=== PATIENT | female | born 1935 | race Caucasian/White ===

== ENCOUNTER 2020-09-09 02:07 | Inpatient (IN) | payer MEDICARE, OTHER ==
[~2020-09-09] VITALS: Ht 172.7 cm; Wt 57.5 kg
[2020-09-09 03:40] VITALS: BP 104/60
[2020-09-09] MEDS ORDERED: GUAIFENESIN/DM 200-20MG, 10ML UDC PO PRN (04:30)
[2020-09-09] MEDS ORDERED: ONDANSETRON 2MG/ML, 2ML IVPush PRN (04:30)
[2020-09-09] MEDS ORDERED: SODIUM CHLORIDE 0.9% 1,000 ML IV SCH (04:30)
[2020-09-09] MEDS ORDERED: METHOCARBAMOL 500 MG TABLET PO PRN (04:30)
[2020-09-09] MEDS ORDERED: OXYcodone IR 5MG TABLET PO PRN (04:30)
[2020-09-09] MEDS ORDERED: ACETAMINOPHEN 325 MG TABLET PO PRN (04:30)
[2020-09-09] MEDS ORDERED: ENALAPRILAT 1.25 MG/ML, 2ML IVPush PRN (04:30)
[2020-09-09] MEDS ORDERED: TEMAZEPAM 15 MG CAPSULE PO PRN (04:30)
[2020-09-09] MEDS ORDERED: DOCUSATE 100 MG CAPSULE PO PRN (04:30)
[2020-09-09 05:29] LABS: BASOPHILS % (AUTO) 0 % (0-1); EOSINOPHILS % (AUTO) 0 % (1-7); LYMPHOCYTES % (AUTO) 5 % (22-44); MEAN CORPUSCULAR HEMOGLOBIN 31.4 pg (27.0-34.8); MEAN CORPUSCULAR HGB CONC 33.9 g/dL (32.4-35.8); MEAN PLATELET VOLUME 7.7 fL (7.4-10.4); MONOCYTES % (AUTO) 7 % (2-9); NEUTROPHILS % (AUTO) 88 % (42-75); PLATELET COUNT 299 x10^3/uL (130-400); RED BLOOD COUNT 3.75 x10^6/uL (3.82-5.3); RED CELL DISTRIBUTION WIDTH 14.2 % (9.6-15.2)
[2020-09-09] MEDS ORDERED: PLEASE ENTER ALLERGIES MC SCH (05:30)
[2020-09-09 05:33] LABS: ANION GAP 7 mmol/L (5-15); CALCIUM 8.5 mg/dL (8.5-10.1); CHLORIDE 107 mmol/L (98-107)
[2020-09-09] MEDS: ENOXAPARIN 40 MG/0.4 ML SQ SCH (06:01)
[2020-09-09] MEDS ORDERED: CLOP75TA52 PO (07:23)
[2020-09-09] MEDS: CEFTRIAXONE 2 GM in DEXTROSE 5% 50 ML IVPB SCH (07:53)
[2020-09-09 07:56] VITALS: BP 118/62
[2020-09-09 11:51] LABS: MICROSCOPIC AUTO
[2020-09-09] MEDS: THIAMINE 100 MG in SODIUM CHLORIDE 0.9% 50 ML IV SCH (13:20)
[2020-09-09] MEDS: INSULIN LISPRO 100 UNITS/ML, PEN SQ-INSULIN SCH ×3 (13:21→20:43)
[2020-09-09 14:59] VITALS: BP 104/60
[2020-09-09 19:32] VITALS: BP 113/67
[2020-09-10 01:18] VITALS: BP 121/75
[2020-09-10] MEDS ORDERED: SODIUM CHLORIDE 0.9% 1,000 ML IV SCH (04:30)
[2020-09-10 04:43] LABS: BASOPHILS % (AUTO) 1 % (0-1); EOSINOPHILS % (AUTO) 0 % (1-7); LYMPHOCYTES % (AUTO) 9 % (22-44); MEAN CORPUSCULAR HEMOGLOBIN 31.7 pg (27.0-34.8); MEAN CORPUSCULAR HGB CONC 33.9 g/dL (32.4-35.8); MEAN PLATELET VOLUME 7.6 fL (7.4-10.4); MONOCYTES % (AUTO) 7 % (2-9); NEUTROPHILS % (AUTO) 83 % (42-75); PLATELET COUNT 279 x10^3/uL (130-400); RED BLOOD COUNT 3.83 x10^6/uL (3.82-5.3); RED CELL DISTRIBUTION WIDTH 13.7 % (9.6-15.2)
[2020-09-10 04:54] LABS: ANION GAP 13 mmol/L (5-15); CALCIUM 8.4 mg/dL (8.5-10.1); CHLORIDE 109 mmol/L (98-107)
[2020-09-10 05:06] LABS: ALANINE AMINOTRANSFERASE 18 U/L (12-78); ALKALINE PHOSPHATASE 65 U/L (45-117); BILIRUBIN,TOTAL 0.4 mg/dL (0.2-1.0); CREATINE KINASE, TOTAL 178 U/L (26-192); CREATININE 0.29 mg/dL (0.55-1.02); TOTAL PROTEIN 5.5 g/dL (6.4-8.2)
[2020-09-10] MEDS: ENOXAPARIN 40 MG/0.4 ML SQ SCH (05:27)
[2020-09-10] MEDS: INSULIN LISPRO 100 UNITS/ML, PEN SQ-INSULIN SCH ×4 (08:00→19:47)
[2020-09-10] MEDS: CEFTRIAXONE 2 GM in DEXTROSE 5% 50 ML IVPB SCH (08:00)
[2020-09-10 09:04] VITALS: BP 115/66
[2020-09-10] MEDS: THIAMINE 100 MG in SODIUM CHLORIDE 0.9% 50 ML IV SCH (11:48)
[2020-09-10 12:47] LABS: ANION GAP 16 mmol/L (5-15); CALCIUM 8.9 mg/dL (8.5-10.1); CHLORIDE 107 mmol/L (98-107); CREATININE 0.45 mg/dL (0.55-1.02)
[2020-09-10] MEDS ORDERED: INSULIN HUMULIN 70/30, 3ML PEN SQ-INSULIN ONE (13:30)
[2020-09-10 13:42] LABS: TROPONIN I < 0.015 ng/mL (0.000-0.045)
[2020-09-10 14:45] VITALS: BP 109/60
[2020-09-10 16:23] LABS: ANION GAP 11 mmol/L (5-15); CALCIUM 8.6 mg/dL (8.5-10.1); CHLORIDE 107 mmol/L (98-107)
[2020-09-10 16:24] LABS: CREATININE 0.45 mg/dL (0.55-1.02)
[2020-09-10] MEDS: CARVEDILOL 3.125 MG TABLET PO SCH (16:59)
[2020-09-10 21:10] VITALS: BP 114/59
[2020-09-11 00:01] VITALS: BP 127/70
[2020-09-11 04:59] VITALS: BP 110/62
[2020-09-11] MEDS: ENOXAPARIN 40 MG/0.4 ML SQ SCH (05:01)
[2020-09-11] MEDS: CARVEDILOL 3.125 MG TABLET PO SCH ×2 (05:01→17:45)
[2020-09-11 06:57] VITALS: BP 116/64
[2020-09-11] MEDS: CEFTRIAXONE 2 GM in DEXTROSE 5% 50 ML IVPB SCH (07:38)
[2020-09-11] MEDS: ASPIRIN 81 MG TABLET CHEW PO SCH (07:38)
[2020-09-11] MEDS: INSULIN LISPRO 100 UNITS/ML, PEN SQ-INSULIN SCH ×4 (07:51→20:23)
[2020-09-11 09:34] LABS: ANION GAP 9 mmol/L (5-15); CALCIUM 8.7 mg/dL (8.5-10.1); CHLORIDE 110 mmol/L (98-107); CREATININE 0.44 mg/dL (0.55-1.02)
[2020-09-11 09:38] LABS: BASOPHILS % (AUTO) 0 % (0-1); EOSINOPHILS % (AUTO) 0 % (1-7); LYMPHOCYTES % (AUTO) 6 % (22-44); MEAN CORPUSCULAR HEMOGLOBIN 31.7 pg (27.0-34.8); MEAN PLATELET VOLUME 7.9 fL (7.4-10.4); MONOCYTES % (AUTO) 6 % (2-9); NEUTROPHILS % (AUTO) 87 % (42-75); PLATELET COUNT 298 x10^3/uL (130-400); RED BLOOD COUNT 3.88 x10^6/uL (3.82-5.3); RED CELL DISTRIBUTION WIDTH 13.8 % (9.6-15.2)
[2020-09-11] MEDS: THIAMINE 100 MG in SODIUM CHLORIDE 0.9% 50 ML IV SCH (11:24)
[2020-09-11] MEDS: INSULIN GLARGINE 100 UNITS/ML, PEN SQ-INSULIN SCH (11:51)
[2020-09-11 12:26] VITALS: BP 109/60
[2020-09-11] MEDS ORDERED: GADOTERATE 5 MMOL/10ML SYR ONE (17:09)
[2020-09-11 19:55] VITALS: BP 124/67
[2020-09-12 00:07] VITALS: BP 115/66
[2020-09-12 05:36] VITALS: BP 115/61
[2020-09-12] MEDS: CARVEDILOL 3.125 MG TABLET PO SCH ×2 (05:40→18:46)
[2020-09-12 07:33] VITALS: BP 114/56
[2020-09-12] MEDS: CEFTRIAXONE 2 GM in DEXTROSE 5% 50 ML IVPB SCH (08:00)
[2020-09-12] MEDS: ASPIRIN 81 MG TABLET CHEW PO SCH (08:13)
[2020-09-12] MEDS: INSULIN LISPRO 100 UNITS/ML, PEN SQ-INSULIN SCH ×4 (08:25→19:58)
[2020-09-12] MEDS: INSULIN GLARGINE 100 UNITS/ML, PEN SQ-INSULIN SCH (08:25)
[2020-09-12] MEDS: THIAMINE 100 MG in SODIUM CHLORIDE 0.9% 50 ML IV SCH (12:06)
[2020-09-12 12:46] VITALS: BP 123/57
[2020-09-12 17:34] VITALS: BP 113/58
[2020-09-12 19:40] VITALS: BP 99/59
[2020-09-13 01:06] VITALS: BP 107/60
[2020-09-13 05:54] VITALS: BP 114/65
[2020-09-13] MEDS: CARVEDILOL 3.125 MG TABLET PO SCH ×2 (05:56→17:56)
[2020-09-13 07:52] VITALS: BP 126/58
[2020-09-13] MEDS: CEFTRIAXONE 2 GM in DEXTROSE 5% 50 ML IVPB SCH (08:13)
[2020-09-13] MEDS: INSULIN LISPRO 100 UNITS/ML, PEN SQ-INSULIN SCH ×4 (08:14→20:55)
[2020-09-13] MEDS: INSULIN GLARGINE 100 UNITS/ML, PEN SQ-INSULIN SCH (08:14)
[2020-09-13 11:02] LABS: BASOPHILS % (AUTO) 1 % (0-1); EOSINOPHILS % (AUTO) 1 % (1-7); LYMPHOCYTES % (AUTO) 8 % (22-44); MEAN CORPUSCULAR HEMOGLOBIN 31.5 pg (27.0-34.8); MEAN CORPUSCULAR HGB CONC 33.5 g/dL (32.4-35.8); MEAN PLATELET VOLUME 7.5 fL (7.4-10.4); MONOCYTES % (AUTO) 9 % (2-9); NEUTROPHILS % (AUTO) 83 % (42-75); PLATELET COUNT 284 x10^3/uL (130-400); RED CELL DISTRIBUTION WIDTH 13.8 % (9.6-15.2)
[2020-09-13 11:12] LABS: ALANINE AMINOTRANSFERASE 20 U/L (12-78); ALBUMIN 1.9 g/dL (3.4-5.0); CALCIUM 8.8 mg/dL (8.5-10.1)
[2020-09-13 11:14] LABS: ALKALINE PHOSPHATASE 69 U/L (45-117); BILIRUBIN,TOTAL 0.2 mg/dL (0.2-1.0); TOTAL PROTEIN 5.6 g/dL (6.4-8.2)
[2020-09-13 11:22] LABS: CHLORIDE 107 mmol/L (98-107)
[2020-09-13 11:25] LABS: ANION GAP 3 mmol/L (5-15)
[2020-09-13] MEDS: THIAMINE 100 MG in SODIUM CHLORIDE 0.9% 50 ML IV SCH (11:30)
[2020-09-13 13:19] LABS: CLOSTRIDIUM DIFFICILE ANTIGEN NEGATIVE; CLOSTRIDIUM DIFFICILE TOXIN NEGATIVE (Negative)
[2020-09-13 13:23] LABS: OCCULT BLOOD POSITIVE (NEGATIVE)
[2020-09-13 14:55] VITALS: BP 132/76
[2020-09-13 19:15] VITALS: BP 118/79
[2020-09-13] MEDS: ATORVASTATIN 40 MG TABLET PO SCH (20:54)
[2020-09-14 00:38] VITALS: BP 129/70
[2020-09-14] MEDS: PANTOPRAZOLE 40MG TABLET PO SCH (05:25)
[2020-09-14] MEDS: CARVEDILOL 3.125 MG TABLET PO SCH ×2 (05:25→17:28)
[2020-09-14 06:02] LABS: BASOPHILS % (AUTO) 0 % (0-1); EOSINOPHILS % (AUTO) 1 % (1-7); LYMPHOCYTES % (AUTO) 7 % (22-44); MEAN CORPUSCULAR HEMOGLOBIN 31.8 pg (27.0-34.8); MEAN CORPUSCULAR HGB CONC 33.9 g/dL (32.4-35.8); MEAN PLATELET VOLUME 7.4 fL (7.4-10.4); MONOCYTES % (AUTO) 7 % (2-9); NEUTROPHILS % (AUTO) 86 % (42-75); PLATELET COUNT 304 x10^3/uL (130-400); RED BLOOD COUNT 3.91 x10^6/uL (3.82-5.3); RED CELL DISTRIBUTION WIDTH 14.1 % (9.6-15.2)
[2020-09-14 06:16] LABS: ANION GAP 4 mmol/L (5-15); CALCIUM 8.7 mg/dL (8.5-10.1); CHLORIDE 108 mmol/L (98-107)
[2020-09-14 06:17] LABS: CREATININE 0.36 mg/dL (0.55-1.02)
[2020-09-14 07:36] VITALS: BP 138/67
[2020-09-14] MEDS: INSULIN LISPRO 100 UNITS/ML, PEN SQ-INSULIN SCH ×4 (08:06→21:00)
[2020-09-14] MEDS: CEFTRIAXONE 2 GM in DEXTROSE 5% 50 ML IVPB SCH (08:06)
[2020-09-14] MEDS: ASPIRIN 81 MG TABLET EC PO SCH ×2 (09:00→09:40)
[2020-09-14] MEDS: CLOPIDOGREL 75 MG TABLET PO SCH (09:40)
[2020-09-14] MEDS: INSULIN GLARGINE 100 UNITS/ML, PEN SQ-INSULIN SCH (09:40)
[2020-09-14] MEDS: THIAMINE 100 MG in SODIUM CHLORIDE 0.9% 50 ML IV SCH (12:32)
[2020-09-14 15:04] VITALS: BP 150/76
[2020-09-14 19:32] VITALS: BP 129/76
[2020-09-14] MEDS: ATORVASTATIN 40 MG TABLET PO SCH (22:16)
[2020-09-15 05:32] VITALS: BP 121/54
[2020-09-15] MEDS: PANTOPRAZOLE 40MG TABLET PO SCH (05:42)
[2020-09-15] MEDS: CARVEDILOL 3.125 MG TABLET PO SCH (05:46)
[2020-09-15] MEDS: INSULIN LISPRO 100 UNITS/ML, PEN SQ-INSULIN SCH ×2 (07:00→11:11)
[2020-09-15 07:42] VITALS: BP 90/52
[2020-09-15] MEDS: CEFTRIAXONE 2 GM in DEXTROSE 5% 50 ML IVPB SCH (08:09)
[2020-09-15] MEDS: ASPIRIN 81 MG TABLET EC PO SCH (09:00)
[2020-09-15] MEDS: CLOPIDOGREL 75 MG TABLET PO SCH (09:54)
[2020-09-15] MEDS: INSULIN GLARGINE 100 UNITS/ML, PEN SQ-INSULIN SCH (09:54)
[2020-09-15] MEDS: THIAMINE 100 MG in SODIUM CHLORIDE 0.9% 50 ML IV SCH (11:11)
[2020-09-15] MEDS ORDERED: PANT40TA6 PO (12:39)
[2020-09-15] MEDS ORDERED: ASPI81TA45 PO (12:39)
[2020-09-15] MEDS ORDERED: ATOR40TA78 PO (12:39)
[2020-09-15] MEDS ORDERED: ACET325T26 PO (12:39)
[2020-09-15] MEDS ORDERED: CARV3.1212 PO (12:39)
[2020-09-15] MEDS ORDERED: INSU100I11 SQ-INSULIN (12:39)
[2020-09-15] MEDS ORDERED: INSU100I13 SQ-INSULIN (12:39)
[2020-09-15] MEDS ORDERED: TEMA15CA6 PO (12:39)
[2020-09-15] MEDS ORDERED: METH-639 PO (12:39)
[2020-09-15 14:10] VITALS: BP 111/61
== END 2020-09-15 16:39 | DRG 871 ==
LOC: 4WST 03:29
PROVIDERS: ADMIT Internal Medicine; ATTEND Family Medicine
PROC: 0T9B70Z Drainage of Bladder with Drainage Device, Via Natural or Artificial Opening (ICD-10-PCS; principal; 2020-09-09)
DX: A41.9 Sepsis, unspecified organism (principal); I63.9 Cerebral infarction, unspecified; G93.41 Metabolic encephalopathy; M62.82 Rhabdomyolysis; N17.9 Acute kidney failure, unspecified; Z68.1 Body mass index [BMI] 19.9 or less, adult; E11.65 Type 2 diabetes mellitus with hyperglycemia; E11.51 Type 2 diabetes mellitus with diabetic peripheral angiopathy without gangrene; F03.90 Unspecified dementia, unspecified severity, without behavioral disturbance, psychotic disturbance, mood disturbance, and anxiety; F17.210 Nicotine dependence, cigarettes, uncomplicated; H91.90 Unspecified hearing loss, unspecified ear; I25.10 Atherosclerotic heart disease of native coronary artery without angina pectoris; J44.9 Chronic obstructive pulmonary disease, unspecified; R09.02 Hypoxemia; R29.6 Repeated falls; R62.7 Adult failure to thrive; H54.7 Unspecified visual loss; E11.22 Type 2 diabetes mellitus with diabetic chronic kidney disease; N18.9 Chronic kidney disease, unspecified; I50.9 Heart failure, unspecified; R34 Anuria and oliguria; Z66 Do not resuscitate; E87.8 Other disorders of electrolyte and fluid balance, not elsewhere classified; I65.21 Occlusion and stenosis of right carotid artery; R53.81 Other malaise; Z79.02 Long term (current) use of antithrombotics/antiplatelets; Z79.82 Long term (current) use of aspirin; Z85.3 Personal history of malignant neoplasm of breast; Z86.73 Personal history of transient ischemic attack (TIA), and cerebral infarction without residual deficits; Z90.11 Acquired absence of right breast and nipple; Z91.81 History of falling; Z95.5 Presence of coronary angioplasty implant and graft; Z91.030 Bee allergy status; Z88.6 Allergy status to analgesic agent; R63.4 Abnormal weight loss
CPT/HCPCS: 36415; 70553; 71045; 71250; 74176; 80048; 80053; 81001; 82040; 82272; 82550; 82962; 83880; 84443; 84484; 85025; 87040; 87086; 87106; 87324; 93306; 93880; 93922; 93925; G0378; J0696; J1650; J3411; 92523-GN; A9575; J1815; J7030